=== PATIENT | male | born 2000 | race Caucasian/White ===

== ENCOUNTER 2019-03-10 06:07 | Day surgery (SDC) | payer BC ==
[~2019-03-10] VITALS: Ht 180.3 cm; Wt 78.9 kg
[2019-03-10] MEDS ORDERED: ONDANSETRON HCL 4 MG/2 ML VIAL IVP PRN (08:15)
[2019-03-10] MEDS ORDERED: fentaNYL CITRATE/PF 100 MCG/2 ML AMP IVP PRN ×2 (08:15)
[2019-03-10] MEDS ORDERED: DEXAMETHASONE SOD PHOSPHATE 4 MG/ML VIAL ONE (10:25)
[2019-03-10] MEDS ORDERED: MIDAZOLAM HCL 5 MG/ML VIAL (VERSED) IV ONE (10:25)
[2019-03-10] MEDS ORDERED: ONDANSETRON HCL 4 MG/2 ML VIAL ONE (10:25)
[2019-03-10] MEDS ORDERED: LIDOCAINE/EPI 1% 1:100000 20 ML VIAL INJ ONE (10:25)
[2019-03-10] MEDS ORDERED: SEVOFLURANE 15 MIN GAS INH ONE (10:25)
[2019-03-10] MEDS ORDERED: NS IRRIG SOLN 1000 ML IR ONE (10:25)
[2019-03-10] MEDS ORDERED: NS 250 ML IV.SOLN IV ONE (10:25)
[2019-03-10] MEDS ORDERED: ROCURONIUM BROMIDE 10 MG/ML (ZEMURON) ONE (10:25)
[2019-03-10] MEDS ORDERED: BACITRACIN 1 GM OINT TP ONE (10:25)
[2019-03-10] MEDS ORDERED: OXYMETAZOLINE HCL 0.05% NASAL SPRAY NS ONE (10:25)
[2019-03-10] MEDS ORDERED: LR 1,000 ML IV.SOLN IV ONE (10:25)
[2019-03-10] MEDS ORDERED: EPINEPHrine 1 MG/ML AMP ONE (10:25)
[2019-03-10] MEDS ORDERED: WATER FOR IRRIGATION,STERILE 1,000 ML IRRIG.SOLN IR ONE (10:25)
[2019-03-10] MEDS ORDERED: MUPIROCIN 2% TOPICAL OINTMENT 22 GM ONE (10:25)
[2019-03-10] MEDS ORDERED: fentaNYL CITRATE/PF 100 MCG/2 ML AMP ONE (10:25)
[2019-03-10 11:52] VITALS: BP_SYST 123
== END 2019-03-10 13:35 | disposition home or self-care (01) ==
LOC: SMU 06:07 → SDS 06:07
PROVIDERS: ATTEND Otolaryngology
DX: J34.2 Deviated nasal septum (principal); J32.9 Chronic sinusitis, unspecified; J34.89 Other specified disorders of nose and nasal sinuses; J35.2 Hypertrophy of adenoids; J32.4 Chronic pansinusitis; D38.5 Neoplasm of uncertain behavior of other respiratory organs; J45.909 Unspecified asthma, uncomplicated; Z88.8 Allergy status to other drugs, medicaments and biological substances
CPT/HCPCS: 30140; 30520; 30999; 31020; 31201; 42831; 88305; 88311; J7120; J0171; J1100; J2250; J2405; J3010; J7050